=== PATIENT | male | born 1960 | race Caucasian/White ===

== ENCOUNTER 2016-09-24 09:43 | Day surgery (SDC) | payer OTHER ==
[2016-09-24] MEDS ORDERED: IV LACTATED RINGERS SOLUTION 1,000 ML BAG IV ONE (09:44)
[2016-09-24] MEDS ORDERED: PROPOFOL 1,000 MG/100 ML BOTTLE IV ONE (09:44)
[2016-09-24] MEDS ORDERED: DESFLURANE ANESTHESIA GAS 240 ML BOTTLE IH ONE (09:44)
[2016-09-24] MEDS ORDERED: LIDOCAINE HCL 2% 20 ML VIAL MC ONE (09:44)
[2016-09-24] MEDS ORDERED: SUCCINYLCHOLINE CHLORIDE 200 MG/10 ML VIAL ONE (11:56)
[2016-09-24] MEDS ORDERED: FENTANYL CITRATE 100 MCG/2 ML AMPUL ONE (13:45)
[2016-09-24] MEDS ORDERED: OXYCODONE/APAP 5-325 MG TABLET ONE (14:53)
== END 2016-09-24 15:24 | disposition home or self-care (01) ==
LOC: DS 09:43
PROVIDERS: ATTEND Orthopaedic Surgery
DX: M23.8X1 Other internal derangements of right knee (principal); M25.861 Other specified joint disorders, right knee; Z98.890 Other specified postprocedural states; F32.9 Major depressive disorder, single episode, unspecified; F41.9 Anxiety disorder, unspecified
CPT/HCPCS: A4663; J0330; J3010; J3490; J7120